=== PATIENT | male | born 1960 | race African-American/Black ===

== ENCOUNTER 2020-07-27 04:25 | Emergency (ER) | payer OTHER ==
[~2020-07-27] VITALS: Ht 165.1 cm; Wt 63.5 kg
[2020-07-27 04:25] VITALS: BP 124/84; TEMP 98.3
== END 2020-07-27 04:55 | disposition home or self-care (01) ==
LOC: ED 04:25
DX: F10.10 Alcohol abuse, uncomplicated (principal)
CPT/HCPCS: 93005; 99282